=== PATIENT | female | born 1990 | race African-American/Black ===

== ENCOUNTER 2018-10-17 20:30 | Emergency (ER) | payer MEDICAID ==
[~2018-10-17] VITALS: Ht 175.3 cm; Wt 82.0 kg
[2018-10-17] MEDS ORDERED: VISCOUS LIDOCAINE 2% 15 ML UDC PO STA (23:05)
[2018-10-18 04:41] VITALS: BP 101/59
== END 2018-10-18 04:41 | disposition home or self-care (01) ==
LOC: ER 20:30
DX: R13.10 Dysphagia, unspecified (principal); F17.200 Nicotine dependence, unspecified, uncomplicated
CPT/HCPCS: 70360; 81025; 99283; 99284

== ENCOUNTER 2019-05-22 18:26 | Emergency (ER) | payer MEDICAID ==
[~2019-05-22] VITALS: Ht 182.9 cm; Wt 100.0 kg
[2019-05-22] MEDS ORDERED: ONDANSETRON HCL 4MG/2ML INJ IV STA (19:00)
[2019-05-22] MEDS ORDERED: TETRACAINE 0.5% OPHTH DROPS 4ML BOTHEYE ONE (19:00)
[2019-05-22] MEDS ORDERED: MORPHINE SULFATE 4 MG/ML CPJ (NOT FOR IM USE) IV STA (19:00)
[2019-05-22] MEDS ORDERED: FLUORESCEIN SODIUM 1MG/STRIP BOTHEYE ONE (19:00)
[2019-05-22] MEDS ORDERED: SODIUM CHLORIDE 0.9% 1,000 ML IV ONE (19:00)
[2019-05-22] MEDS ORDERED: HYDROCODONE/ACETAMINOPHEN 5/325MG TABLET PO ONE ×2 (19:45→22:00)
[2019-05-22] MEDS ORDERED: ONDANSETRON 4MG ODT PO ONE (19:45)
[2019-05-22 22:46] VITALS: BP 112/76
== END 2019-05-22 22:46 | disposition home or self-care (01) ==
LOC: ER 18:26
DX: S42.391A Other fracture of shaft of right humerus, initial encounter for closed fracture (principal); H57.11 Ocular pain, right eye; K02.9 Dental caries, unspecified; V43.62XA Car passenger injured in collision with other type car in traffic accident, initial encounter; W22.12XA Striking against or struck by front passenger side automobile airbag, initial encounter; Y93.89 Activity, other specified; Y92.488 Other paved roadways as the place of occurrence of the external cause
CPT/HCPCS: 70450; 70480; 71045; 73030; 99284; J7030; Q0162; L3670